=== PATIENT | female | born 1965 | race Caucasian/White ===

== ENCOUNTER 2016-09-20 10:29 | Emergency (ER) | payer OTHER ==
[~2016-09-20] VITALS: Ht 170.2 cm; Wt 86.0 kg
[2016-09-20] MEDS ORDERED: CENTRUM VITAMIN PO (11:14)
[2016-09-20] MEDS ORDERED: FISH OIL1000 MG PO (11:14)
[2016-09-20] MEDS ORDERED: PROBIOTIC1 TAB PO (11:15)
[2016-09-20] MEDS ORDERED: HIPREX1 GM PO (11:16)
[2016-09-20] MEDS ORDERED: NAPROSYN500 MG PO (11:59)
[2016-09-20 12:25] VITALS: BP 117/58
== END 2016-09-20 13:20 | disposition home or self-care (01) | DRG 563 ==
LOC: ED 10:29
DX: S63.502A Unspecified sprain of left wrist, initial encounter (principal); S19.9XXA Unspecified injury of neck, initial encounter; W01.0XXA Fall on same level from slipping, tripping and stumbling without subsequent striking against object, initial encounter; Y93.H9 Activity, other involving exterior property and land maintenance, building and construction; Y92.008 Other place in unspecified non-institutional (private) residence as the place of occurrence of the external cause